=== PATIENT | male | born 1990 | race African-American/Black ===

== ENCOUNTER 2022-01-07 02:55 | Emergency (ER) | payer SELFPAY ==
[~2022-01-07] VITALS: Ht 190.5 cm; Wt 131.1 kg
[2022-01-07] MEDS ORDERED: TETANUS, DIPHTHERIA, PERTUSSIS VAC/PF 0.5ML (>10YR OLD) IM ONE (03:30)
[2022-01-07] MEDS ORDERED: HYDROCODONE/ACETAMINOPHEN 5/325MG TABLET PO ONE (03:30)
[2022-01-07] MEDS ORDERED: BACITRACIN 15GM TUBE TOP ONE (03:30)
[2022-01-07] MEDS ORDERED: BACITRACIN ZINC OINT UDPKT TOP NR (03:45)
[2022-01-07] MEDS ORDERED: CYCL10TA7 MT (03:52)
[2022-01-07] MEDS ORDERED: IBUP-2030 MT (03:52)
[2022-01-07 03:56] VITALS: BP 149/101
== END 2022-01-07 04:21 | disposition home or self-care (01) ==
LOC: ER 02:55
DX: S40.812A Abrasion of left upper arm, initial encounter (principal); S40.811A Abrasion of right upper arm, initial encounter; V29.9XXA Motorcycle rider (driver) (passenger) injured in unspecified traffic accident, initial encounter; Y93.89 Activity, other specified; Y92.89 Other specified places as the place of occurrence of the external cause; Y99.8 Other external cause status
CPT/HCPCS: 90471; 90715; 99283; A4217